=== PATIENT | female | born 1985 | race Caucasian/White ===

== ENCOUNTER 2024-08-18 07:55 | Emergency (ER) | payer SELFPAY ==
[2024-08-18] VITALS (10 sets, daily range): BP systolic 109–142; BP diastolic 66–73; PULSE 110–136; RESP 18; TEMP 37.9; O2SAT 92–98
--- NOTE | 2024-08-18 08:00 | DI.RAD_ITS ---
Exam(s) XR CHEST 2V PA LATERAL EXAM: XR CHEST 2V PA LATERAL CLINICAL HISTORY: cough TECHNIQUE: 2D digital imaging was performed of the chest. Two images were obtained. PA and lateral views were obtained. COMPARISON: No exams were available for comparison FINDINGS: MEDIASTINUM: Normal. HEART: Normal. PULMONARY VASCULATURE: Normal. LUNGS: Clear. PLEURAL SPACE: No pleural effusion or pneumothorax. BONE:Within normal limits for the patient's age. OTHER FINDINGS:Normal. IMPRESSION: No acute pulmonary findings. DATA REPOSITORY: RADIATION DOSE DELIVERED:
--- NOTE | 2024-08-18 08:09 | ED.GENADUL_ITS ---
Discharge Plan Disposition Patient Disposition: Home Condition: Stable Discharge Details Clinical Impression: N&V (nausea and vomiting), Hypomagnesemia Primary Care Provider: None,None ED Provider: Benjamín Bajwa Home Meds and New Rx's Prescriptions: New ondansetron 4 mg tablet,disintegrating 4 mg PO Q8H PRN (Reason: nausea and vomiting) Qty: 30 0RF Discharge Instructions Instructions: Hypomagnesemia Additional Instructions: You are likely suffering from a viral illness. Try to drink fluids to stay hydrated. If you not improving this week follow-up with either express care or your primary care provider If you feel more ill, have severe abdominal pain or persistent vomiting despite the medication return to the emergency department for reevaluation HPI General Mode of arrival: ambulatory . Date/Time Provider Initiated Documentation: 08/18/24 07:57 . Limitations to Documentation: no limitations . Information obtained by: patient . History of Present Illness 39 year old F presents to the emergency department with the chief complaint of n/v, chills, described as moderate, Patient started experiencing this day(s) (1) and it has been constant and intermittent. No relieving factors improve symptom(s), No exacerbating factors reported . Patient notes cough, fever/chills and nausea/vomiting; denies chest pain and shortness of breath. Patient did receive the following treatments prior to arrival, none Related Data Home Medications ?Medication ?Instructions ?Recorded ?Confirmed ondansetron 4 mg disintegrating 4 mg PO Q8H PRN nausea and 08/18/24 tablet vomiting #30 tabs Previous Rx's ?Medication ?Instructions ?Recorded ondansetron 4 mg disintegrating 4 mg PO Q8H PRN nausea and 08/18/24 tablet vomiting #30 tabs Allergies Allergy/AdvReac Type Severity Reaction Status Date / Time Penicillins Allergy Mild Skin Rash Verified 08/18/24 08:01 General Stated Complaint: Abd Prob ADEN: 3 Review of Systems All systems reviewed & are unremarkable except as noted in HPI and below Constitutional Constitutional: Denies chills, Denies fever(s) and Denies weakness Cardiovascular Cardiovascular: Denies chest pain and Denies dyspnea Respiratory Respiratory: Reports cough and Denies dyspnea Gastrointestinal Gastrointestinal: Denies abdominal pain, Reports nausea and Reports vomiting Integumentary/Breasts Skin/Breast: Denies rash Neurologic Neurologic: Denies weakness Endocrine Endocrine: Denies cold intolerance and Denies heat intolerance Exam Const General: no acute distress Orientation: alert HENMT Head: normal to inspection Ears: external ears normal General nose exam: external nose normal Mouth: moist mucous membranes Eyes General: appearance normal, both eyes and all related structures Neck Neck: normal visual inspection Resp Effort & Inspection: normal respiratory effort and able to speak in complete sentences Auscultation: clear to auscultation bilaterally Cardio Jugular venous pressure: no JVD Rate: regular rate Heart Sounds: no murmurs GI Palpation: soft and nontender Skin General skin exam: no rashes or lesions noted Neuro General: patient alert and patient oriented x3 Extrem General: normal to inspection Psych Mental Status: mental status grossly normal Course Vital Signs Vital signs: Vital Signs Temperature 37.9 C H 08/18/24 07:58 Pulse 136 H 08/18/24 07:58 Respiratory Rate 18 08/18/24 07:58 Blood Pressure 142/73 H 08/18/24 07:58 Pulse Oximetry 96 08/18/24 07:58 Temperature 37.9 C H 08/18/24 08:02 Temperature Source Oral 08/18/24 08:02 Pulse 136 H 08/18/24 08:02 Respiratory Rate 18 08/18/24 08:02 Blood Pressure 142/73 H 08/18/24 08:02 Blood Pressure Position Supine 08/18/24 08:02 Pulse Oximetry 96 08/18/24 08:02 Oxygen Delivery Method Room Air 08/18/24 08:02 Oxygen Flow Rate 0 08/18/24 08:02 Pain Level 5 08/18/24 08:02 Medical Decision Making 39-year-old female who denies any chronic medical problems and denies being on any daily medications comes in with 1 day of intermittent chills nausea vomiting. She also states she has had a cough. She does not know if she has had a fever. She denies any IV drug use, neck stiffness, severe headaches. She is tachycardic on arrival but otherwise stable. She has dry mucous membranes, clear lung sounds, abdomen is soft and nontender. There is no rashes. No murmurs. No JVD. No leg swelling. Given her nausea vomiting and chills suspect she probably is developing a gastroenteritis, will check a CBC CMP procalcitonin UA and Fluvid along with a chest x-ray given her cough and reassess. Will treat her symptoms with droperidol and Toradol Labs show mildly low mag of 1.5 otherwise no significant findings. Patient sleeping on reassessment but awakens easily to voice and states she feels significantly better. She still has no abdominal pain no tenderness on exam so do not feel any acute imaging is indicated. I suspect she is suffering from the onset of the gastroenteritis and advised she may end up having diarrhea at some point. Given reassuring workup and improvement with droperidol and no abdominal tenderness feel she is stable for discharge and can follow-up with her PCP if not improving, return precautions given Differential Diagnosis Differential Diagnosis: URI, gastroenteritis, food illness Quality:SDOH Health Related Social Needs: No Data to Display PFSH All Active Problems (Updated 08/18/24 @ 09:52 by Benjamín Bajwa MD) Hypomagnesemia (Acute) N&V (nausea and vomiting) (Acute) Social History Smoking/Tobacco Use Status: Never Smoking risk assessment performed?: Yes Alcohol Intake: never Drug use: Never Substance use type: does not use Do you feel safe at home: Yes Do you feel safe in your relationship?: Yes
[2024-08-18] MEDS: Droperidol 5 MG/2 ML VIAL 2.5 MG IVP (08:25)
[2024-08-18] MEDS: Ketorolac 15 MG/ML VIAL IVP (08:26)
[2024-08-18 08:28] LABS: Abs Immature Grans 0.02 10^3/uL (0.0-0.06); Absolute Basophil Count 0.03 10^3/uL (0.0-0.2); Absolute Eosinophil Count 0.07 10^3/uL (0.0-0.7); Absolute Lymphocyte Count 0.44 10^3/uL (1.2-3.4); Absolute Neutrophil Count 6.93 10^3/uL (1.2-6.7); Basophils % 0.4 %; Eosinophils % 0.9 %; HCT 41.3 % (36.0-46.0); HGB 13.8 g/dL (11.2-15.7); Immature Grans % 0.3 %; Lymphocytes % 5.5 %; MCH 30.2 pg (27.0-33.0); MCHC 33.4 % (32.0-36.0); MCV 90 fL (80-95); MPV 10.5 fL (8.0-11.0); Monocytes % 6.3 %; Neutrophils % 86.6 %; Platelet Count 190 10^3/uL (130-400); RBC 4.57 10^6/uL (3.93-5.22); RDW 12.4 % (11.7-14.6); RDW-SD 41.1 fL; WBC 7.99 10^3/uL (4.4-10.8)
[2024-08-18 08:42] LABS: ALT 30 U/L (14-59); AST 23 U/L (15-37); Albumin 3.5 g/dL (3.4-5.0); Alkaline Phosphatase 75 U/L (46-116); Anion Gap 7.7 mmol/L (3-11); BUN 7 mg/dL (7-18); Bilirubin, Total 0.73 mg/dL (0.2-1.0); CO2 30.3 mmol/L (21.0-32.0); CREATININE 0.8 mg/dL (0.55-1.02); Calcium 9.6 mg/dL (8.5-10.1); Chloride 103 mmol/L (98-107); Estimated GFR 96.06 (mL/min/1.73m2); Glucose 163 mg/dL (74-106); Lipase 21 U/L (<78); Magnesium 1.5 mg/dL (1.8-2.4); Potassium 3.9 mmol/L (3.5-5.1); Sodium 141 mmol/L (136-145); Total Protein 7.5 g/dL (6.4-8.2)
[2024-08-18 08:45] LABS: HCG Qual (Serum) Negative
[2024-08-18 08:46] LABS: Bilirubin Negative (Negative); Blood Negative (Negative); Clarity Clear (Clear); Glucose Negative (Negative); Ketones Negative (Negative); Leukocyte Esterase Negative (Negative); Nitrite Negative (Negative); Urobilinogen 0.2 mg/dL (Up to 0.2)
[2024-08-18 09:20] LABS: Procalcitonin < 0.10 ng/mL
== END 2024-08-18 10:02 | disposition home or self-care (01) ==
PROVIDERS: Emergency Provider Emergency Medicine
DX: R11.2 Nausea with vomiting, unspecified (principal); E83.42 Hypomagnesemia
CPT/HCPCS: 36415; 80053; 83690; 84145; 87637; 96374; 96375; 99284; 71046; 81003; 83735; 84703; 85025; J1790; J1885

== ENCOUNTER 2025-04-25 22:26 | Emergency (ER) | payer MEDICAID, SELFPAY ==
[2025-04-25 22:31] VITALS: BP 152/87; PULSE 80; RESP 18; TEMP 36.7; O2SAT 96
[2025-04-25 22:34] VITALS: BP 152/87; PULSE 82; RESP 18; O2SAT 97
[2025-04-25 22:40] VITALS: RESP 16
--- NOTE | 2025-04-25 23:00 | ED.GENADUL_ITS ---
Discharge Plan Disposition Patient Disposition: Home Condition: Good Discharge Details Clinical Impression: Acute effusion of right ear Primary Care Provider: None,None ED Provider: Andie Boateng Discharge Instructions Instructions: Serous Otitis Media Additional Instructions: Oxymetazolone 2 sprays in each nostril twice a day for the next 3 days. Do not use longer than three days. Benadyrl or another decongestant over the counter; follow the directions on the bottle. Call your primary care doctor in the morning to schedule an appointment to be seen as soon as possible to followup on your visit today. At that visit please also discuss your blood pressure (which is high here in the ED) and your chronic arm pain. Return to the emergency department for new or woresening symptoms including ear pain, fever, or if you have any other concerns. HPI General Mode of arrival: ambulatory . Date/Time Provider Initiated Documentation: 04/25/25 22:27 . Limitations to Documentation: no limitations . Information obtained by: patient . HPI Narrative: 40yo F with hx of cervical cancer, otherwise well, presenting for 'whooshing' in right ear that seems to correspond with her heartbeat. Symptoms started about one hour ago and have been constant. No ear pain or fevers. No tinnitius. No vertgio. Has has mild throat irritation in the morning for the past 2-3 days which improves as the day goes on. No cough, rhinnorhea, or nasal congestion. Has never had similar symptoms in the past. Also notes right arm pain, worse with use, that has been present for the past several months and is not worse today; this is not what prompted her ED visit today. Related Data Allergies Allergy/AdvReac Type Severity Reaction Status Date / Time Penicillins Allergy Mild Skin Rash Verified 04/25/25 22:36 General Stated Complaint: GenMedical ADEN: 3 Review of Systems Narrative: see HPI Exam Narrative Exam Narrative: General: Alert, well appearing, well nourished, in no acute distress. Head: Normocephalic, atraumatic Neck: Trachea midline, ?Neck supple. ENT: ?MMM.? No oropharygeal lesions or exudate. Right TM with serous effusion, no erythema. Left TM clear. Benavides localizes to right. Normal Rinne. Cardiac: ?Well perfused. Resp: No respiratory distress. Speaking in full sentences. Abd: Non-distended Extremities: ?No deformities.? No peripheral edema. Right triceps tender to palpation particularly at insertion at elbow. Sensation intact throughout RUE, 5/5 strength throughout. 2+ symmetric radial pulses bilaterally Neurologic: GCS 15. ? Moves all extremities freely against gravity Course Vital Signs Vital signs: Vital Signs Temperature 36.7 C 04/25/25 22:31 Pulse 80 04/25/25 22:31 Respiratory Rate 18 04/25/25 22:31 Blood Pressure 152/87 H 04/25/25 22:31 Pulse Oximetry 96 04/25/25 22:31 Temperature 36.7 C 04/25/25 22:31 Temperature Source Oral 04/25/25 22:31 Pulse 82 04/25/25 22:34 Respiratory Rate 16 04/25/25 22:40 Respiratory Effort Non-Labored 04/25/25 22:40 Respiratory Depth Normal 04/25/25 22:40 Respiratory Pattern Normal 04/25/25 22:40 Blood Pressure 152/87 H 04/25/25 22:34 Pulse Oximetry 97 04/25/25 22:34 Oxygen Delivery Method Room Air 04/25/25 22:34 Oxygen Flow Rate 0 04/25/25 22:31 Pain Level 3 04/25/25 22:31 Medical Decision Making 40yo F with hx of cervical cancer, otherwise well, presenting for 'whooshing' in right ear that seems to correspond with her heartbeat. No ear pain, tinnitus, or vertigo. Vital signs reassuring on arrival, on exam she has clear serous effusion at right TM with Benavides localizing to right and normal Rinne, suggestive of middle ear effusion and resultant mild conductive hearing loss. Not suggestive of CVA, meningitis, Menniere's, mastoiditis, TM rupture, labyrinthitis; no indication for labs or CT imaging. Will treat with antihistam jose m and afrin. She also incidentally notes right arm pain for several months, worse with use, no history of trauma; neurovascular intact on exam with clear tenderness to palpation of right triceps particularly at insertion at elbow. History and exam not suggestive of fracture, dislocation, DVT, ACS, neurovascular, or other emergent pathology. Advised symptomatic treatment at home for msk pain (? tendonitis) as well as PCP followup. Discharged home; discharge instructions were reviewed with patient who verbalized understanding. All questions were answered and she is in full agreement with the plan. PFS All Active Problems (Updated 04/25/25 @ 23:02 by Andie Boateng MD) Acute effusion of right ear (Acute) Social History Smoking/Tobacco Use Status: Never Smoking risk assessment performed?: Yes Alcohol Intake: never Drug use: Never Substance use type: does not use Do you feel safe at home: Yes Do you feel safe in your relationship?: Yes
[2025-04-25] MEDS: diphenhydrAMINE 25 MG CAP PO (23:09)
[2025-04-25] MEDS: Oxymetazolone 0.05% SPRAY 15 ML BTL NS (23:10)
== END 2025-04-25 23:24 | disposition home or self-care (01) ==
PROVIDERS: Emergency Provider Student in an Organized Health Care Education/Training Program
DX: H92.01 Otalgia, right ear (principal)
CPT/HCPCS: 99283